=== PATIENT | male | born 1965 | race Caucasian/White ===

== ENCOUNTER 2016-12-05 14:16 | Emergency (ER) | payer MEDICARE, MEDICAID ==
[~2016-12-05] VITALS: Ht 190.5 cm; Wt 129.5 kg
[~2016-12-05 14:16] MED LIST: BLOOD GLUCOSE T1 TES; CELE200C PO; CELE40TA PO; CYAN1000P IM; CYCL1TAB29 PO; HYDR-3580 PO; MAXA5TAB2 PO; METF500T PO; METO50TA11 PO; MS C30TA PO; NEUR800T PO; OMEP20CA2 PO; SIMV40TA PO; VITA10007 PO; VITA400C5 PO
--- NOTE | 2016-12-05 14:43 | PD ---
HPI Chief Complaint: Laceration/Skin Injury Time Seen by Provider: 14:43 Travel History International Travel<30 days: No Contact w/Intl Traveler<30days: No Traveled to known affect area: No History of Present Illness HPI 51-year-old male presents to the emergency Department with complaint of a laceration to the bottom of his left foot that happened today. He is wheelchair bound but able to ambulate small distances and he stood up to put a ethyl blender away and didn't realize the ethyl blender blade was below his foot and he stepped on it. He does not know if his tetanus up-to-date. Patient has history of diabetic neuropathy and has decreased sensation in his toes. He denies loss of sensation and denies change in sensation. Denies decreased range of motion, decreased strength to affected extremity. Denies fever, chills , nausea, vomiting. History of diabetes, diabetic neuropathy. Dr. Thompson is primary care provider. Allergic to amoxicillin. No other modifying factors or associated signs and symptoms. PFSH Past Medical History Blood Disorders: No Depression: Yes (H/O) Heart Rhythm Problems: No Cancer: Yes (SKIN CANCER) Cardiac Catheterization: No Cardiovascular Problems: No High Cholesterol: Yes Chemotherapy: No Congestive Heart Failure: No Diabetes: Yes Diminished Hearing: No Endocrine: Yes Glaucoma: No Genitourinary: No Hepatitis: No Hiatal Hernia: No Hypertension: Yes (H/O) Immune Disorder: No Musculoskeletal: Yes (CHRONIC BACK PAIN, LEG PAIN, T9 & 10 HERNIATED) Neurologic: Yes (MIGRAINES) Psychiatric: No Reproductive: No Respiratory: No Myocardial Infarction: No Radiation Therapy: No Thyroid Disease: No Past Surgical History Abdominal Surgery: Yes (GASTRIC BYPASS SX, APPENDECTOMY ) Appendectomy: Yes Body Medical Devices: ROCKY LEFT LEG Cardiac Surgery: No Coronary Artery Bypass Graft: No Ear Surgery: No Endocrine Surgery: No Eye Surgery: No Genitourinary Surgery: No Gynecologic Surgery: No Oral Surgery: No Pacemaker: No Other Surgery: Yes Social History Alcohol Use: No Tobacco Use: No Substance Use: No Allergies-Medications (Allergen,Severity, Reaction): Coded Allergies: Amoxicillin (Verified Allergy, Severe, RASH, THROAT CLOSES, 12/05/16) Reported Meds & Prescriptions Reported Meds & Active Scripts Active Ibuprofen 800 Mg Tab 800 Mg PO Q6HR PRN Clindamycin (Clindamycin HCl) 150 Mg Cap 450 Mg PO Q8HR 7 Days Ms Contin (Morphine Sulfate) 30 Mg Tab 30 Mg PO Q6HR Hydrocodone-Acetaminophen 7.5-325 mg Tab 1 Tab PO Q4H PRN Metformin (Metformin HCl) 500 Mg Tab 500 Mg PO BIDPC With meals Cyanocobalamin Inj (Cyanocobalamin) 1,000 Mcg/Ml Inj 1,000 Mcg IM WEEKLY Omeprazole 20 Mg Cap 2 Tab PO DAILY Blood Glucose Test Strips 1 Lupe Lupe 1 Strips .ROUTE DIRECTED Test blood sugar 3 times daily Dx: E11.42 Metoprolol Succinate ER 24 HR (Metoprolol Succinate) 50 Mg Tab 50 Mg PO DAILY Simvastatin 40 Mg Tab 40 Mg PO HS Flexeril (Cyclobenzaprine HCl) 10 Mg Tab 10 Mg PO HS PRN Neurontin (Gabapentin) 800 Mg Tab 800 Mg PO TID Celexa (Citalopram Hydrobromide) 40 Mg Tab 40 Mg PO DAILY Celebrex (Celecoxib) 200 Mg Cap 200 Mg PO DAILY Reported E-400 (Vitamin E) 400 Unit Cap 400 Units PO DAILY Vitamin C (Ascorbic Acid) 1,000 Mg Tab 1,000 Mg PO DAILY Maxalt (Rizatriptan Benzoate) 5 Mg Tab 1 Tab PO DAILY may repeat in 2 hrs Review of Systems Except as stated in HPI: all other systems reviewed are Neg Physical Exam Narrative GENERAL: Well-nourished, well-developed male patient, in no acute distress SKIN: Warm and dry. Laceration that measures 5-1/2 cm to the bottom of the left foot from in between the fourth and fifth toe extending to the metatarsal area; deep sensation intact to the fourth and fifth toes; without erythema, edema; with full range of motion; less than 3 second cap refill. Left lower extremity is supple and non-tense with 2+ pedal pulse and sensory intact and without erythema or edema. HEAD: Atraumatic. Normocephalic. EYES: Pupils equal and round. No scleral icterus. No injection or drainage. ENT: Mucosa pink and moist. Airway patent. NECK: Trachea midline. CARDIOVASCULAR: Regular rate. RESPIRATORY: No accessory muscle use. GASTROINTESTINAL: Obese. MUSCULOSKELETAL: No obvious deformities. No clubbing. No cyanosis. No edema. NEUROLOGICAL: Awake and alert. Oriented 3. No obvious cranial nerve deficits. Motor grossly within normal limits. Normal speech. PSYCHIATRIC: Appropriate mood and affect; insight and judgment normal. Data Data Orders Foot, Complete (Zid6ess) (12/05/16 14:43) Tetanus/Diphtheria Tox Adult (Tetanus/Di (12/05/16 14:45) Lidocaine 1% Inj (50 Ml) (Xylocaine 1% I (12/05/16 14:45) Splint Or Brace Apply/Monitor (12/05/16 15:01) MDM Medical Decision Making Medical Screen Exam Complete: Yes Emergency Medical Condition: Yes Medical Record Reviewed: Yes Differential Diagnosis Laceration, contusion, abrasion, partial amputation Narrative Course 51-year-old male with laceration to the bottom of his left foot. See my procedure note for laceration repair. Tetanus updated in the ER. Left foot x- ray ordered. 1558: Left foot x-ray concludes unremarkable examination of the left foot. [employer] provided for support. Patient is wheelchair-bound most of the time and only walks from his wheelchair to the toilet. Patient has follow-up appointment with Dr. Thompson tomorrow scheduled 11:30 AM. Keflex, ibuprofen prescribed for home. Patient verbalizes understanding and agreement treatment plan. Patient is medically cleared and stable for discharge. Discussed reasons to return to the emergency department. Instructed patient to follow up with primary care provider. Patient agrees with treatment plan. The patients vital signs are stable and the patient is stable for outpatient follow-up and treatment. Patient discharged home, stable and in no acute distress. Procedures Procedure Narrative LACERATION LOCATION: bottom of the left foot from in between the fourth and fifth toe extending to the metatarsal area LENGTH: 5-1/2 centimeters NUMBER OF STITCHES/CAITIE: 14 simple interrupted sutures REPAIR: The area of the laceration was prepped with Betadine and sterilely draped. The laceration was infiltrated with 1% lidocaine. The wound was copiously irrigated and explored without evidence of foreign body, tendon injury or neurovascular injury. The wound was closed using 4-0 Prolene. This was a single layer repair. A sterile dressing was applied. The patient was advised to keep the dressing clean and dry. Patient tolerated the procedure well. Diagnosis Primary Impression: Laceration of left foot Qualified Code: S91.312A - Laceration of left foot, initial encounter Referrals: Poolroom Table Attendant Primary Care Physician Patient Instructions: Care For Your Stitches (ED), General Instructions, Laceration (ED) Additional Instructions: Keep area clean and dry Limit left leg/foot activity to decrease risk of sutures coming undone; use boot for support Ibuprofen or Tylenol as directed as needed for pain and inflammation Ice pack to area as needed to decrease pain Return to the emergency department or follow-up with your primary care provider in 14 days for suture removal Follow up with primary care provider Return to the emergency department immediately with worsening of symptoms, particularly if reddened streaks up or down the affected extremity from the suture site, fever, numbness/tingling in the affected extremity, loss of sensation in the affected extremity, severe swelling of the affected Med/Other Pt SpecificInfo: Prescription(s) given Scripts Ibuprofen 800 Mg [id number] Mg PO Q6HR PRN (PAIN) #30 TAB Ref 0 Prov:Daniela Serrato 12/05/16 Clindamycin 150 Mg Rot588 Mg PO Q8HR 7 Days Ref 0 Prov:Daniela Serrato 12/05/16 Disposition: 01 DISCHARGE HOME Condition: Stable Daniela Serrato Dec 05, 2016 14:43
[2016-12-05] MEDS ORDERED: TETANUS/DIPHTHERIA TOXOID ADULT 0.5 ML VIAL IM ONE (14:45)
[2016-12-05] MEDS ORDERED: LIDOCAINE HCL 1% 50 ML VIAL INFIL ONE (14:45)
--- NOTE | 2016-12-05 15:02 | RADRPT ---
EXAM DATE/TIME: 12/05/2016 15:06 [facility] COMPARISON: No previous studies available for comparison. 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 MEDICAL HISTORY : Hypertension. Diabetes mellitus type II. SURGICAL HISTORY : None. ENCOUNTER: Initial ACUITY: 1 day PAIN SCORE: 5/10 LOCATION: Left Foot. FINDINGS: Three view examination of the left foot demonstrates no soft tissue swelling, dislocation, or fractur e. The tarsal bones appear intact. The interphalangeal and metatarsophalangeal joints are intact. The calcaneus is intact. Bony mineralization is normal. CONCLUSION: Unremarkable examination of the left foot. Rj Arellano MD on December 05, 2016 at 15:01 Board Certified Radiologist. This report was verified electronically.
[2016-12-05] MEDS ORDERED: IBUP800T23 PO (15:05)
[2016-12-05] MEDS ORDERED: CLIN1CAP5 PO (15:05)
[2016-12-20] MEDS ORDERED: MS C30TA PO (13:48)
[2016-12-20] MEDS ORDERED: HYDR-3580 PO (13:48)
[2017-01-18] MEDS ORDERED: HYDR-3580 PO (13:47)
[2017-01-18] MEDS ORDERED: MS C30TA PO (13:47)
[2017-01-30] MEDS ORDERED: MAXA5TAB2 PO (10:52)
[2017-01-31] MEDS ORDERED: CYCL1TAB29 PO (13:12)
[2017-02-15] MEDS ORDERED: METO50TA11 PO (10:57)
[2017-02-15] MEDS ORDERED: BLOOD GLUCOSE T1 TES (10:57)
[2017-02-20] MEDS ORDERED: MS C30TA PO (14:11)
[2017-02-20] MEDS ORDERED: HYDR-3580 PO (14:11)
[2017-03-21] MEDS ORDERED: MORP1TAB25 PO (13:26)
[2017-03-21] MEDS ORDERED: HYDR-3580 PO (13:26)
== END 2016-12-05 16:26 | disposition home or self-care (01) ==
LOC: NEPB 14:16
DX: S91.312A Laceration without foreign body, left foot, initial encounter (principal); E78.00 Pure hypercholesterolemia, unspecified; E11.9 Type 2 diabetes mellitus without complications; I10 Essential (primary) hypertension; W26.8XXA Contact with other sharp object(s), not elsewhere classified, initial encounter; Y92.009 Unspecified place in unspecified non-institutional (private) residence as the place of occurrence of the external cause; Z99.3 Dependence on wheelchair; Z23 Encounter for immunization
CPT/HCPCS: 12002; 73630; 90471; 90714; 99283; L2114

== ENCOUNTER 2017-05-11 15:08 | Emergency (ER) | payer OTHER, MEDICARE, MEDICAID ==
[~2017-05-11] VITALS: Ht 190.5 cm; Wt 140.0 kg
[~2017-05-11 15:08] MED LIST changes: +IBUP800T23 PO; +MORP1TAB25 PO; -MS C30TA PO
[2017-05-11 15:10] VITALS: BP 179/112; PULSE 98; RESP 17; TEMP 98.2; O2SAT 98
[2017-05-11] MEDS ORDERED: SODIUM CHLORIDE 0.9% FLUSH 10 ML FLUSH IVF PRN (17:15)
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
[2017-05-11 17:44] LABS: AUTOMATED NEUTROPHIL # 5.5 TH/MM3 (1.8-7.7); BASOPHIL # 0.1 TH/MM3 (0-0.2); BASOPHIL % 0.6 % (0.0-2.0); EOSINOPHIL # 0.1 TH/MM3 (0-0.4); EOSINOPHIL % 1.5 % (0.0-4.0); HEMATOCRIT 34.5 % (39.0-51.0); HEMO FLAGS DIFF FINAL; LYMPH % 27.3 % (9.0-44.0); LYMPHOCYTE # 2.5 TH/MM3 (1.0-4.8); MEAN CELL VOLUME 74.4 FL (80.0-100.0); MEAN CORPUSCULAR HEMOGLOBIN 24.3 PG (27.0-34.0); MEAN CORPUSCULAR HGB CONC 32.6 % (32.0-36.0); MONO % 10.2 % (0.0-8.0); NEUT % 60.4 % (16.0-70.0); PLATELET COUNT 263 TH/MM3 (150-450); RED BLOOD COUNT 4.64 MIL/MM3 (4.50-5.90); RED CELL DISTRIBUTION WIDTH 17.6 % (11.6-17.2); WHITE BLOOD COUNT 9.2 TH/MM3 (4.0-11.0)
[2017-05-11] MEDS ORDERED: MORPHINE SULFATE 30 MG CONTROLLED RELEASE TAB PO ONE (17:45)
[2017-05-11] MEDS ORDERED: LINA145C PO (17:46)
[2017-05-11] MEDS ORDERED: HYDR-3288 PO (17:46)
[2017-05-11 17:53] LABS: APTT (PATIENT) 23.8 SEC (24.3-30.1); PROTHROMBIN TIME - PATIENT 10.7 SEC (9.8-11.6)
[2017-05-11 18:05] LABS: ANION GAP 5 MEQ/L (5-15); AST (GOT) 13 U/L (15-37); BICARBONATE 28.7 MEQ/L (21.0-32.0); BLOOD UREA NITROGEN 8 MG/DL (7-18); CHLORIDE 102 MEQ/L (98-107); GLOMERULAR FILTRATION RATE 93 ML/MIN (>89); POTASSIUM 4.4 MEQ/L (3.5-5.1); SODIUM (NA) 136 MEQ/L (136-145)
[2017-05-11 18:07] LABS: ALT (GPT) 17 U/L (12-78)
[2017-05-11 18:09] LABS: ALKALINE PHOSPHATASE 60 U/L (45-117); TOTAL BILIRUBIN ADULT 0.3 MG/DL (0.2-1.0)
[2017-05-11 18:19] VITALS: BP 120/75; PULSE 75; RESP 17; O2SAT 98
[2017-05-11] MEDS ORDERED: IOHEXOL 350 MG/ML 10 ML VIAL (for RAD DIAG) IV ONE (18:30)
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
[2017-05-16] MEDS ORDERED: MORP1TAB25 PO (10:20)
[2017-05-22] MEDS ORDERED: MORP1TAB24 PO (15:11)
[2017-06-01] MEDS ORDERED: MORP1TAB25 PO (16:14)
[2017-06-28] MEDS ORDERED: CELE200C PO (16:43)
[2017-07-02] MEDS ORDERED: Glucose Test Strips (12:03)
[2017-07-03] MEDS ORDERED: MORP1TAB25 PO (14:54)
[2017-07-03] MEDS ORDERED: HYDR-3288 PO (14:54)
[2017-07-24] MEDS ORDERED: HYDR-3288 PO (15:11)
[2017-07-24] MEDS ORDERED: MORP1TAB25 PO (15:11)
== END 2017-05-11 20:19 | disposition home or self-care (01) ==
LOC: NEPD 15:08
DX: S30.1XXA Contusion of abdominal wall, initial encounter (principal); V09.00XA Pedestrian injured in nontraffic accident involving unspecified motor vehicles, initial encounter; Z88.0 Allergy status to penicillin; I10 Essential (primary) hypertension; E11.9 Type 2 diabetes mellitus without complications; E78.00 Pure hypercholesterolemia, unspecified; Z85.828 Personal history of other malignant neoplasm of skin
CPT/HCPCS: 70450; 71260; 72125; 74177; 80053; 85025; 85610; 85730; 86850; 86900; 86901; 96374; 99285; Q9967

== ENCOUNTER 2017-05-13 11:22 | Emergency (ER) | payer MEDICARE ==
[~2017-05-13] VITALS: Ht 190.5 cm; Wt 135.0 kg
[~2017-05-13 11:22] MED LIST changes: -BLOOD GLUCOSE T1 TES; -CELE40TA PO; +HYDR-3288 PO; -HYDR-3580 PO; +LINA145C PO; -VITA10007 PO; -VITA400C5 PO
[2017-05-13 11:24] VITALS: BP 140/93; PULSE 97; RESP 16; TEMP 98.8; O2SAT 98
[2017-05-13] MEDS ORDERED: KETOROLAC TROMETHAMINE 60 MG/2 ML (IM) VIAL IM ONE (12:45)
[2017-05-13] MEDS ORDERED: ONDANSETRON ODT 4 MG TAB PO ONE (12:45)
[2017-05-13] MEDS ORDERED: MECLIZINE HCL 25 MG TAB PO ONE (12:45)
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
[2017-05-13] MEDS ORDERED: IBUP-232 PO (12:52)
[2017-05-13] MEDS ORDERED: ZOFR4TAB3 SL (12:52)
[2017-05-13] MEDS ORDERED: MECL12.574 PO (12:52)
[2017-05-16] MEDS ORDERED: MORP1TAB25 PO (10:20)
[2017-05-22] MEDS ORDERED: MORP1TAB24 PO (15:11)
== END 2017-05-13 13:18 | disposition home or self-care (01) ==
LOC: NEPD 11:22
DX: H81.10 Benign paroxysmal vertigo, unspecified ear (principal); S16.1XXA Strain of muscle, fascia and tendon at neck level, initial encounter; R11.0 Nausea; V89.2XXA Person injured in unspecified motor-vehicle accident, traffic, initial encounter; E11.9 Type 2 diabetes mellitus without complications; E78.00 Pure hypercholesterolemia, unspecified; I10 Essential (primary) hypertension; Z98.84 Bariatric surgery status; Z88.0 Allergy status to penicillin; Z85.828 Personal history of other malignant neoplasm of skin
CPT/HCPCS: 96372; 99284; J1885; L0120